=== PATIENT | female | born 1975 | race Caucasian/White ===

== ENCOUNTER 2025-01-14 06:36 | Outpatient (CLI) | payer BC ==
[2025-01-14 07:22] LABS: MEAN PLATELET VOLUME 8.0 FL (7.4-10.4); RED CELL DISTRIBUTION WIDTH 14.0 % (11.5-14.5)
[2025-01-14 10:15] LABS: CHOL/HDL RATIO 4.4 (0.00-4.99); CREATININE 0.71 MG/DL (0.40-0.90); LDL CHOLESTEROL 186 MG/DL (50-100); TOTAL CARBON DIOXIDE 26.6 MMOL/L (24-32); eGFR 87 ML/MIN
[2025-01-15 11:04] LABS: ESTRADIOL 27.1 pg/mL (.); FSH, SERUM 64.6 mIU/mL (.); PROGESTERONE <0.1 ng/mL (.); VITAMIN D, 25-HYDROXY 23.7 ng/mL (30.0-100.0)
[2025-01-15 15:42] LABS: CREATININE, URINE 13.0 mg/dL (Not Estab.); MICROALB/CRT, RATIO <23 mg/g creat (0-29); MICROALBUMIN,U,RANDOM <3.0 ug/mL (Not Estab.)
== END 2025-01-14 23:59 | disposition home or self-care (01) ==
LOC: RAD 06:36
PROVIDERS: ATTEND Nurse Practitioner Family
DX: Z00.00 Encounter for general adult medical examination without abnormal findings (principal); R68.89 Other general symptoms and signs; R79.89 Other specified abnormal findings of blood chemistry; E78.00 Pure hypercholesterolemia, unspecified; R94.6 Abnormal results of thyroid function studies; E55.9 Vitamin D deficiency, unspecified; R80.9 Proteinuria, unspecified; R89.1 Abnormal level of hormones in specimens from other organs, systems and tissues; R87.1 Abnormal level of hormones in specimens from female genital organs; N95.1 Menopausal and female climacteric states
CPT/HCPCS: 36415; 80053; 80061; 82043; 82306; 82570; 82670; 83001; 83036; 84144; 84443; 85025